=== PATIENT | male | born 1975 | race Caucasian/White ===

== ENCOUNTER 2022-05-22 22:36 | Emergency (ER) | payer SELFPAY ==
[~2022-05-22] VITALS: Ht 172.7 cm; Wt 85.7 kg
--- NOTE | 2022-05-22 22:46 | NUR ---
Dr. Aguirre at bedside. MSE in [facility].
[2022-05-22] MEDS ORDERED: CEphaleXIN 500 MG CAPSULE ONE (22:55)
[2022-05-22] MEDS ORDERED: TDAP DIPH,PERTUSS,TET VAC/PF 0.5 ML DISP.SYRIN IM ONE ×2 (22:55→23:00)
--- NOTE | 2022-05-22 22:57 | NUR ---
X-ray at bedside.
[2022-05-22] MEDS ORDERED: CEphaleXIN 500 MG CAPSULE PO ONE (23:00)
[2022-05-22] MEDS ORDERED: CEPH500T PO (23:47)
[2022-05-22] MEDS ORDERED: LIDOCAINE 1%-EPI 1:100,000 20 ML VIAL ONE (23:57)
[2022-05-23] MEDS ORDERED: SODIUM BICARBONATE 4.2 % (NEUT) 5 ML VIAL ONE (00:03)
--- NOTE | 2022-05-23 00:23 | NUR ---
Patient discharged in stable condition with [employer]. Officer Raghu signed dc paperwork. PATIENT a/o x 4. NAD noted. Ambulatory with a steady gait. Written and verbal after care instructions given. Officer verbalizes understanding of instructions. Stressed follow up or return to ER for worsening s/s.
[2022-05-23 00:38] VITALS: BP 130/91
[2022-05-23] MEDS ORDERED: LIDOCAINE 1%-EPI 1:100,000 20 ML VIAL IJ ONE (02:45)
[2022-05-23] MEDS ORDERED: SODIUM BICARBONATE 4.2 % (NEUT) 5 ML VIAL TP ONE (02:45)
== END 2022-05-23 00:23 ==
LOC: ER 22:36
DX: S01.411A Laceration without foreign body of right cheek and temporomandibular area, initial encounter (principal); Y00.XXXA Assault by blunt object, initial encounter; Y92.89 Other specified places as the place of occurrence of the external cause; S60.512A Abrasion of left hand, initial encounter; S61.412A Laceration without foreign body of left hand, initial encounter; W45.8XXA Other foreign body or object entering through skin, initial encounter
CPT/HCPCS: 12001; 73130; 90715; 90471; 99283; J3490 ×2